=== PATIENT | male | born 2000 | race Caucasian/White ===

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

== ENCOUNTER 2019-04-15 13:28 | Emergency (ER) | payer BC ==
[~2019-04-15] VITALS: Ht 182.9 cm; Wt 51.3 kg
[~2019-04-15 13:28] MED LIST: CEPH500C PO; CEPH500T PO
[2019-04-15] MEDS ORDERED: IV NORMAL SALINE 1000ML BAG 1,000 ML IV ONE ×2 (14:30→16:30)
[2019-04-15] MEDS ORDERED: ONDANSETRON PF 4 MG/2 ML VIAL. IV ONE (14:30)
[2019-04-15 14:33] LABS: BILIRUBIN,URINE NEGATIVE (NEG); CLARITY,URINE CLEAR; COLOR,URINE YELLOW; NITRITE,URINE NEGATIVE (NEG); PH,URINE 8.5; PROTEIN,URINE 100 mg/dL (NEG-TRACE)
[2019-04-15 14:38] LABS: BACTERIA,URINE 0 /HPF (0-FEW); RBC,URINE 0 /HPF (0-2); SQUAMOUS EPITHELIAL CELL,UR OCC /LPF; WBC,URINE 0 /HPF (0-4)
[2019-04-15 15:08] LABS: BASO % 0 % (0-3); EOS % 0 % (0-3); HEMATOCRIT 47.7 % (39.0-53.0); HEMOGLOBIN 16.5 g/dL (13.0-17.5); LYMPH # 0.2 x10^3/uL (1.0-4.8); LYMPH % 2 % (24-48); MEAN CORPUSCULAR HEMOGLOBIN 30 pg (25-35); MEAN CORPUSCULAR HGB CONC 35 g/dL (31-37); MEAN CORPUSCULAR VOLUME 87 fL (79-100); MONO # 0.6 x10^3/uL (0.0-1.1); MONO % 5 % (0-9); NEUT # 10.8 x10^3/uL (1.8-7.7); NEUT % 93 % (31-73); PLATELET COUNT 176 x10^3/uL (140-400); RED BLOOD COUNT 5.47 x10^6/uL (4.30-5.70); RED CELL DISTRIBUTION WIDTH 13.1 % (11.5-14.5); WHITE BLOOD COUNT 11.6 x10^3/uL (4.0-11.0)
[2019-04-15 15:16] LABS: CALCIUM 9.4 mg/dL (8.5-10.1); CREATININE 0.8 mg/dL (0.7-1.3); GFR 124.5; POTASSIUM 3.7 mmol/L (3.5-5.1)
[2019-04-15 15:22] LABS: ALBUMIN 4.5 g/dL (3.4-5.0); ALBUMIN/GLOBULIN RATIO 1.5 (1.0-1.7); TOTAL BILIRUBIN 0.8 mg/dL (0.2-1.0); TOTAL PROTEIN 7.5 g/dL (6.4-8.2)
[2019-04-15 15:28] LABS: % LYMPHS 3 % (24-48); % MONOS 4 % (0-10); % SEGS 93 % (35-66); PLT ESTIMATE ADEQUATE (ADEQUATE); TOXIC GRANULATION SLIGHT
[2019-04-15 15:29] LABS: TOXIC VACUOLATION SLIGHT
--- NOTE | 2019-04-15 17:06 | PHYS DOC ---
Past Medical History Past Medical History: No Pertinent History Past Surgical History: No Surgical History Smoking: Cigarettes (uses one pod of JULL Vape daily) Alcohol Use: None Drug Use: Marijuana (occasionally smokes marijuana, denies use of marijuana vape or wax) Adult General Chief Complaint Chief Complaint: NAUSEA/VOMITING/DIARRHA HPI HPI Patient is a 18 year old male, accompanied by significant other, who presents to the [facility] see department from urgent care with reports of 8 episodes of vomiting and dehydration. Patient states that he has vomited 8 times in the last 24 hours, he denies any hematemesis. He states that prior to arrival in the emergency department his upper abdomen was hurting. He denies any diarrhea or abdominal pain this time. Patient denies any fever, cough, ear pain, headache, dysuria, increased urinary frequency, back pain, or diarrhea. He denies any tirso rtness of breath, or wheezing. Patient admits to using marijuana on occasion. He denies using any marijuana vape, oil, or wax products. He states that he only smokes the actual plant. Patient does admit to using a vape nicotine products, he smokes approximately one pod of Juul Nicotine daily. He currently denies any pain. All other ROS is neg unless otherwise noted in HPI. Review of Systems Review of Systems See Above Current Medications Current Medications Current Medications Medications (Trade) Dose Ordered Sig/Fan Start Time Stop Time Status Last Admin Dose Admin Ondansetron HCl (Zofran) 4 mg 1X ONCE 04/15/19 14:30 04/15/19 14:32 DC 04/15/19 14:58 4 MG Sodium Chloride 1,000 ml @ 1,000 mls/hr 1X ONCE 04/15/19 16:30 04/15/19 17:29 04/15/19 16:30 1,000 MLS/HR Allergies Allergies Allergies Coded Allergies Type Severity Reaction Last Updated Verified No Known Drug Allergies 02/16/18 No Physical Exam Physical Exam See Above Constitutional: Well developed, appears dehydrated, no acute distress, ill appearance. [] HENT: Normocephalic, atraumatic, bilateral external ears normal, oropharynx dry, dry chapped lips, nose normal. [] Eyes: PERRLA, EOMI, conjunctiva normal, no discharge. [] Neck: Normal range of motion, no stridor. [] Cardiovascular:Heart rate regular tachycardic rhythm, no murmur [] Lungs & Thorax: Bilateral breath sounds clear to auscultation, Respirations even and unlabored, no retractions, no respiratory distress [] Abdomen: Bowel sounds normal, soft, no tenderness, no guarding, no rebound tenderness, no masses, no pulsatile masses. [] Skin: Warm, dry, no erythema, no rash. [] Extremities: No cyanosis, no clubbing, ROM intact, no edema. [] Neurologic: Alert and oriented X 3, no focal deficits noted. [] Psychologic: Affect normal, judgement normal, mood normal. [] Current Patient Data Lab Values Laboratory Tests Test 04/15/19 14:21 04/15/19 14:55 Urine Collection Type Unknown Urine Color Yellow Urine Clarity Clear Urine pH 8.5 Urine Specific Allen >=1.030 Urine Protein 100 mg/dL (NEG-TRACE) Urine Glucose (UA) Negative mg/dL (NEG) Urine Ketones (Stick) >=80 mg/dL (NEG) Urine Blood Negative (NEG) Urine Nitrite Negative (NEG) Urine Bilirubin Negative (NEG) Urine Urobilinogen Dipstick 1.0 mg/dL (0.2 mg/dL) Urine Leukocyte Esterase Trace (NEG) Urine RBC 0 /HPF (0-2) Urine WBC 0 /HPF (0-4) Urine Squamous Epithelial Cells Occ /LPF Urine Bacteria 0 /HPF (0-FEW) Urine Mucus Slight /LPF White Blood Count 11.6 x10^3/uL (4.0-11.0) H Red Blood Count 5.47 x10^6/uL (4.30-5.70) Hemoglobin 16.5 g/dL (13.0-17.5) Hematocrit 47.7 % (39.0-53.0) Mean Corpuscular Volume 87 fL (79-100) Mean Corpuscular Hemoglobin 30 pg (25-35) Mean Corpuscular Hemoglobin Concent 35 g/dL (31-37) Red Cell Distribution Width 13.1 % (11.5-14.5) Platelet Count 176 x10^3/uL (140-400) Neutrophils (%) (Auto) 93 % (31-73) H Lymphocytes (%) (Auto) 2 % (24-48) L Monocytes (%) (Auto) 5 % (0-9) Eosinophils (%) (Auto) 0 % (0-3) Basophils (%) (Auto) 0 % (0-3) Neutrophils # (Auto) 10.8 x10^3/uL (1.8-7.7) H Lymphocytes # (Auto) 0.2 x10^3/uL (1.0-4.8) L Monocytes # (Auto) 0.6 x10^3/uL (0.0-1.1) Eosinophils # (Auto) 0.0 x10^3/uL (0.0-0.7) Basophils # (Auto) 0.0 x10^3/uL (0.0-0.2) Segmented Neutrophils % 93 % (35-66) H Lymphocytes % 3 % (24-48) L Monocytes % 4 % (0-10) Toxic Granulation Slight Toxic Vacuolation Slight Platelet Estimate Adequate (ADEQUATE) Sodium Level 139 mmol/L (136-145) Potassium Level 3.7 mmol/L (3.5-5.1) Chloride Level 103 mmol/L (98-107) Carbon Dioxide Level 27 mmol/L (21-32) Anion Gap 9 (6-14) Blood Urea Nitrogen 31 mg/dL (8-26) H Creatinine 0.8 mg/dL (0.7-1.3) Estimated GFR (Cockcroft-Gault) 124.5 BUN/Creatinine Ratio 39 (6-20) H Glucose Level 113 mg/dL (70-99) H Calcium Level 9.4 mg/dL (8.5-10.1) Total Bilirubin 0.8 mg/dL (0.2-1.0) Aspartate Amino Transferase (AST) 17 U/L (15-37) Alanine Aminotransferase (ALT) 23 U/L (16-63) Alkaline Phosphatase 66 U/L (46-116) Total Protein 7.5 g/dL (6.4-8.2) Albumin 4.5 g/dL (3.4-5.0) Albumin/Globulin Ratio 1.5 (1.0-1.7) Lipase 64 U/L (73-393) L Laboratory Tests 04/15/19 14:55 Laboratory Tests 04/15/19 14:55 EKG EKG [] Radiology/Procedures Radiology/Procedures [] Course & Med Decision Making Course & Med Decision Making Pertinent Labs and Imaging studies reviewed. (See chart for details) Patient was given 2 L of normal saline in the emergency department. Orthostatics following 2 bags of fluid were within normal limits. The patient reported feeling much better. Patient was given 4 mg of Zofran IV in the emergency department he reported no nausea after this medication was given. CBC revealed white blood cell count of 11.6, otherwise unremarkable, CMP revealed a BUN of 31, creatinine of 0.8, elevated BUN/creatinine ratio of 39, glucose was 113 otherwise unremarkable; patient's UA was unremarkable. At 1719 patient's heart rate is 88, SPO2 99% on room air, respirations 16. Patient reports feeling better we'll prescribe Zofran to take as needed for nausea. Recommend clear fluids for 24 hours then advance to Jason diet as tolerated. Follow-up with primary care doctor next week, return to the ER symptoms worsen. Patient verbalized an understanding of home care, medications, follow-up, and return to ED instructions and was in agreement with the plan of care. [] Dragon Disclaimer Dragon Disclaimer This electronic medical record was generated, in whole or in part, using a voice recognition dictation system. Departure Departure Impression: Primary Impression: Nausea & vomiting Additional Impression: Dehydration, mild Disposition: 01 HOME, SELF-CARE Condition: STABLE Referrals: UNKNOWN PCP NAME (PCP) Patient Instructions: Dehydration, Adult, [id number], Nausea and Vomiting, Rioh-rh-Oice Additional Instructions: Fill prescriptions and use them as directed. Recommend clear fluids for the next 24 hours. Then you may advance to bland foods such as bananas, rice, applesauce, and dry toast. Follow-up with your primary care doctor in the next 1-2 days. Return to the emergency room if your symptoms worsen. Scripts Ondansetron Hcl (ONDANSETRON HCL) 4 Mg Tablet 1 TAB PO PRN Q6HRS PRN for NAUSEA/VOMITING for 3 Days, #10 TAB 0 Refills Prov: ROSA CULP APRN 04/15/19 Problem Qualifiers Primary Impression: Nausea & vomiting Vomiting type: unspecified Vomiting Intractability: non-intractable Qualified Codes: R11.2 - Nausea with vomiting, unspecified ROSA CULP APRN Apr 15, 2019 17:06
[2019-04-15 17:17] VITALS: BP 118/71
[2019-04-15] MEDS ORDERED: ONDA-84 PO (17:21)
== END 2019-04-15 17:26 | disposition home or self-care (01) ==
LOC: ER 13:28
DX: R11.2 Nausea with vomiting, unspecified (principal); E86.0 Dehydration; F17.210 Nicotine dependence, cigarettes, uncomplicated; F12.90 Cannabis use, unspecified, uncomplicated
CPT/HCPCS: 36415; 80053; 81001; 83690; 85007; 85025; 87086; 96361; 96374; 99284; J2405; J7030